=== PATIENT | male | born 1955 | race Caucasian/White ===

== ENCOUNTER 2016-11-29 16:25 | Emergency (ER) | payer SELFPAY ==
[2016-11-29 16:28] VITALS: BP 163/83; PULSE 18; PULSE 84; RESP 18; TEMP 98.3; O2SAT 95
--- NOTE | 2016-11-29 18:10 | PD ---
HPI Chief Complaint: Complaint Time Seen by Provider: 18:05 Travel History International Travel<30 days: No Contact w/Intl Traveler<30days: No Traveled to known affect area: No History of Present Illness HPI Patient is a 61-year-old male presenting to the emergency department for evaluation of left testicular pain. Patient states he feels as if there is an extra golfball in his left testicle. He states the pain started several weeks ago but increased today and feels like he's been kicked in the "nuts". Patient denies any dysuria, frequency, discharge, nausea, vomiting, fever, chills, abdominal pain or back pain. Patient reports pain as a 9 out of 10 and describes it as sore and aching. PFSH Past Medical History Hypertension: Yes Past Surgical History Appendectomy: Yes Eye Surgery: Yes Other Surgery: Yes (sinus surgery, wrist surgery) Social History Alcohol Use: Yes (occasionally) Tobacco Use: No Substance Use: No Allergies-Medications (Allergen,Severity, Reaction): Coded Allergies: No Known Allergies (Unverified , 11/29/16) Reported Meds & Prescriptions Reported Meds & Active Scripts Active Reported Synthroid (Levothyroxine Sodium) 75 Mcg Tab 75 Mcg PO DAILY Xanax (Alprazolam) 1 Mg Tab 1 Mg PO HS PRN Lisinopril 20 Mg Tab 20 Mg PO DAILY Review of Systems Except as stated in HPI: all other systems reviewed are Neg Genitourinary: Positive: Other (testicle pain) Physical Exam Narrative GENERAL: Well-developed, well-nourished, alert male. Appears uncomfortable, in no acute distress. SKIN: Warm and dry. HEAD: Atraumatic. Normocephalic. EYES: Pupils equal and round. No scleral icterus. No injection or drainage. ENT: No nasal bleeding or discharge. Mucous membranes pink and moist. NECK: Trachea midline. No JVD. CARDIOVASCULAR: Regular rate and rhythm. No murmur appreciated. RESPIRATORY: No accessory muscle use. Clear to auscultation. Breath sounds equal bilaterally. GASTROINTESTINAL: Abdomen soft, non-tender, nondistended. Hepatic and splenic margins not palpable. MUSCULOSKELETAL: No obvious deformities. No clubbing. No cyanosis. No edema. NEUROLOGICAL: Awake and alert. No obvious cranial nerve deficits. Motor grossly within normal limits. Normal speech. PSYCHIATRIC: Appropriate mood and affect; insight and judgment normal. GENITOURINARY: Circumcised. Testes descended bilaterally without evidence of rotation. No lesions or erythema. No urethral discharge. Left testicle is enlarged, tender to palpation. Data Data Last Documented VS Vital Signs Date Time Temp Pulse Resp B/P Pulse Ox O2 Delivery O2 Flow Rate FiO2 11/29/16 19:58 18 11/29/16 19:01 68 131/77 97 Room Air 11/29/16 16:28 98.3 Orders Complete Blood Count With Diff (11/29/16 18:03) Comprehensive Metabolic Panel (11/29/16 18:03) Ua Includes Microscopic (11/29/16 18:03) Gc And Chlamydia Pcr (11/29/16 18:03) Us Testicles W Doppler (11/29/16 18:03) Morphine Inj (Morphine Inj) (11/29/16 19:45) Labs Laboratory Tests Test 11/29/16 19:05 White Blood Count 6.5 TH/MM3 Red Blood Count 4.31 MIL/MM3 Hemoglobin 13.8 GM/DL Hematocrit 41.4 % Mean Corpuscular Volume 96.0 FL Mean Corpuscular Hemoglobin 32.1 PG Mean Corpuscular Hemoglobin 33.4 % Concent Red Cell Distribution Width 14.2 % Platelet Count 208 TH/MM3 Mean Platelet Volume 9.5 FL Neutrophils (%) (Auto) 67.3 % Lymphocytes (%) (Auto) 15.7 % Monocytes (%) (Auto) 13.6 % Eosinophils (%) (Auto) 2.3 % Basophils (%) (Auto) 1.1 % Neutrophils # (Auto) 4.4 TH/MM3 Lymphocytes # (Auto) 1.0 TH/MM3 Monocytes # (Auto) 0.9 TH/MM3 Eosinophils # (Auto) 0.1 TH/MM3 Basophils # (Auto) 0.1 TH/MM3 CBC Comment DIFF FINAL Differential Comment Sodium Level 141 MEQ/L Potassium Level 3.9 MEQ/L Chloride Level 107 MEQ/L Carbon Dioxide Level 28.6 MEQ/L Anion Gap 5 MEQ/L Blood Urea Nitrogen 16 MG/DL Creatinine 1.13 MG/DL Estimat Glomerular Filtration 66 ML/MIN Rate Random Glucose 84 MG/DL Calcium Level 8.5 MG/DL Total Bilirubin 0.3 MG/DL Aspartate Amino Transf 20 U/L (AST/SGOT) Alanine Aminotransferase 42 U/L (ALT/SGPT) Alkaline Phosphatase 51 U/L Total Protein 7.4 GM/DL Albumin 3.8 GM/DL MDM Medical Decision Making Medical Screen Exam Complete: Yes Emergency Medical Condition: Yes Interpretation(s) Vital Signs Date Time Temp Pulse Resp B/P Pulse Ox O2 Delivery O2 Flow Rate FiO2 11/29/16 16:28 98.3 84 18 163/83 95 Differential Diagnosis Epididymitis versus Varicocele versus torsion versus hernia versus other Narrative Course Patient is a 61-year-old male presenting to emergency for evaluation of left testicle pain and swelling. Symptoms have been ongoing for several weeks however increased today. Workup initiated triage, care of patient will be transferred to provider when a medical bed is available. Park Viera Nov 29, 2016 18:10
[2016-11-29 19:01] VITALS: BP 131/77; PULSE 68; RESP 18; O2SAT 97
--- NOTE | 2016-11-29 19:03 | RADRPT ---
EXAM DATE/TIME: 11/29/2016 18:12 1[facility] COMPARISON: No previous studies available for comparison. INDICATIONS : Left testicle pain. MEDICAL HISTORY : Hypertension. Testicular pain. SURGICAL HISTORY : Appendectomy. Sinus surgery. Wrist surgery. ENCOUNTER: Initial ACUITY: 1 day PAIN SCORE: 8/10 LOCATION: Bilateral scrotum. MEASUREMENTS: RIGHT TESTICLE: 4.8 x 3.1 x 2.7cm LEFT TESTICLE: 4.2 x 3.3 x 2.7cm FINDINGS: RIGHT TESTICLE: Homogeneous echotexture without intra or extratesticular mass. Blood flow is symmetric and within no rmal limits. No hydrocele or varicocele. Epididymis is within normal limits. LEFT TESTICLE: Homogeneous echotexture without intra or extratesticular mass. Blood flow is symmetric and within no rmal limits. No varicocele. There is a moderate hydrocele. Epididymis is within normal limits. SCROTUM: Within normal limits. CONCLUSION: 1. The testicles are intrinsically normal. 2. Moderate sized left hydrocele. Newton Cruz MD on November 29, 2016 at 19:00 Board Certified Radiologist. This report was verified electronically.
[2016-11-29] MEDS ORDERED: XANA1TAB2 PO (19:05)
[2016-11-29] MEDS ORDERED: LEVO.075 PO (19:05)
[2016-11-29] MEDS ORDERED: LISI-515 PO (19:05)
[2016-11-29 19:20] LABS: AUTOMATED NEUTROPHIL # 4.4 TH/MM3 (1.8-7.7); BASOPHIL # 0.1 TH/MM3 (0-0.2); BASOPHIL % 1.1 % (0.0-2.0); EOSINOPHIL # 0.1 TH/MM3 (0-0.4); EOSINOPHIL % 2.3 % (0.0-4.0); HEMATOCRIT 41.4 % (39.0-51.0); HEMO FLAGS DIFF FINAL; LYMPH % 15.7 % (9.0-44.0); MEAN CORPUSCULAR HEMOGLOBIN 32.1 PG (27.0-34.0); MEAN CORPUSCULAR HGB CONC 33.4 % (32.0-36.0); MONO % 13.6 % (0.0-8.0); NEUT % 67.3 % (16.0-70.0); PLATELET COUNT 208 TH/MM3 (150-450); RED BLOOD COUNT 4.31 MIL/MM3 (4.50-5.90); RED CELL DISTRIBUTION WIDTH 14.2 % (11.6-17.2); WHITE BLOOD COUNT 6.5 TH/MM3 (4.0-11.0)
[2016-11-29 19:45] LABS: ANION GAP 5 MEQ/L (5-15); AST (GOT) 20 U/L (15-37); BICARBONATE 28.6 MEQ/L (21.0-32.0); BLOOD UREA NITROGEN 16 MG/DL (7-18); CHLORIDE 107 MEQ/L (98-107); GLOMERULAR FILTRATION RATE 66 ML/MIN (>89); POTASSIUM 3.9 MEQ/L (3.5-5.1); SODIUM (NA) 141 MEQ/L (136-145)
[2016-11-29] MEDS ORDERED: MORPHINE SULFATE 4 MG/ML INJ IV PUSH ONE (19:45)
[2016-11-29 19:48] LABS: ALKALINE PHOSPHATASE 51 U/L (45-117); ALT (GPT) 42 U/L (12-78); TOTAL BILIRUBIN ADULT 0.3 MG/DL (0.2-1.0)
--- NOTE | 2016-11-29 20:11 | PD ---
Physical Exam Date Seen by Provider: Nov 29, 2016 Data Data Last Documented VS Vital Signs Date Time Temp Pulse Resp B/P Pulse Ox O2 Delivery O2 Flow Rate FiO2 11/29/16 20:18 71 16 128/88 98 Room Air 11/29/16 16:28 98.3 Orders Complete Blood Count With Diff (11/29/16 18:03) Comprehensive Metabolic Panel (11/29/16 18:03) Ua Includes Microscopic (11/29/16 18:03) Gc And Chlamydia Pcr (11/29/16 18:03) Us Testicles W Doppler (11/29/16 18:03) Morphine Inj (Morphine Inj) (11/29/16 19:45) Labs Laboratory Tests Test 11/29/16 11/29/16 19:05 20:58 White Blood Count 6.5 TH/MM3 Red Blood Count 4.31 MIL/MM3 Hemoglobin 13.8 GM/DL Hematocrit 41.4 % Mean Corpuscular Volume 96.0 FL Mean Corpuscular Hemoglobin 32.1 PG Mean Corpuscular Hemoglobin 33.4 % Concent Red Cell Distribution Width 14.2 % Platelet Count 208 TH/MM3 Mean Platelet Volume 9.5 FL Neutrophils (%) (Auto) 67.3 % Lymphocytes (%) (Auto) 15.7 % Monocytes (%) (Auto) 13.6 % Eosinophils (%) (Auto) 2.3 % Basophils (%) (Auto) 1.1 % Neutrophils # (Auto) 4.4 TH/MM3 Lymphocytes # (Auto) 1.0 TH/MM3 Monocytes # (Auto) 0.9 TH/MM3 Eosinophils # (Auto) 0.1 TH/MM3 Basophils # (Auto) 0.1 TH/MM3 CBC Comment DIFF FINAL Differential Comment Sodium Level 141 MEQ/L Potassium Level 3.9 MEQ/L Chloride Level 107 MEQ/L Carbon Dioxide Level 28.6 MEQ/L Anion Gap 5 MEQ/L Blood Urea Nitrogen 16 MG/DL Creatinine 1.13 MG/DL Estimat Glomerular Filtration 66 ML/MIN Rate Random Glucose 84 MG/DL Calcium Level 8.5 MG/DL Total Bilirubin 0.3 MG/DL Aspartate Amino Transf 20 U/L (AST/SGOT) Alanine Aminotransferase 42 U/L (ALT/SGPT) Alkaline Phosphatase 51 U/L Total Protein 7.4 GM/DL Albumin 3.8 GM/DL Urine Color LIGHT-YELLOW Urine Turbidity CLEAR Urine pH 7.5 Urine Specific [place] 1.012 Urine Protein NEG mg/dL Urine Glucose (UA) NEG mg/dL Urine Ketones NEG mg/dL Urine Occult Blood NEG Urine Nitrite NEG Urine Bilirubin NEG Urine Urobilinogen LESS THAN 2.0 MG/DL Urine Leukocyte Esterase NEG Urine RBC 1 /hpf Urine WBC LESS THAN 1 /hpf Microscopic Urinalysis Comment CULT NOT INDICATED MDM Medical Record Reviewed: Yes Supervised Visit with CASSIUS: Yes Interpretation(s) Vital Signs Date Time Temp Pulse Resp B/P Pulse Ox O2 Delivery O2 Flow Rate FiO2 11/29/16 19:58 18 11/29/16 19:01 68 18 131/77 97 Room Air 11/29/16 16:28 98.3 84 18 163/83 95 Laboratory Tests Test 11/29/16 19:05 White Blood Count 6.5 TH/MM3 (4.0-11.0) Red Blood Count 4.31 MIL/MM3 (4.50-5.90) Hemoglobin 13.8 GM/DL (13.0-17.0) Hematocrit 41.4 % (39.0-51.0) Mean Corpuscular Volume 96.0 FL (80.0-100.0) Mean Corpuscular Hemoglobin 32.1 PG (27.0-34.0) Mean Corpuscular Hemoglobin 33.4 % Concent (32.0-36.0) Red Cell Distribution Width 14.2 % (11.6-17.2) Platelet Count 208 TH/MM3 (150-450) Mean Platelet Volume 9.5 FL (7.0-11.0) Neutrophils (%) (Auto) 67.3 % (16.0-70.0) Lymphocytes (%) (Auto) 15.7 % (9.0-44.0) Monocytes (%) (Auto) 13.6 % (0.0-8.0) Eosinophils (%) (Auto) 2.3 % (0.0-4.0) Basophils (%) (Auto) 1.1 % (0.0-2.0) Neutrophils # (Auto) 4.4 TH/MM3 (1.8-7.7) Lymphocytes # (Auto) 1.0 TH/MM3 (1.0-4.8) Monocytes # (Auto) 0.9 TH/MM3 (0-0.9) Eosinophils # (Auto) 0.1 TH/MM3 (0-0.4) Basophils # (Auto) 0.1 TH/MM3 (0-0.2) CBC Comment DIFF FINAL Differential Comment Sodium Level 141 MEQ/L (136-145) Potassium Level 3.9 MEQ/L (3.5-5.1) Chloride Level 107 MEQ/L (98-107) Carbon Dioxide Level 28.6 MEQ/L (21.0-32.0) Anion Gap 5 MEQ/L (5-15) Blood Urea Nitrogen 16 MG/DL (7-18) Creatinine 1.13 MG/DL (0.60-1.30) Estimat Glomerular Filtration 66 ML/MIN (>89) Rate Random Glucose 84 MG/DL (74-106) Calcium Level 8.5 MG/DL (8.5-10.1) Total Bilirubin 0.3 MG/DL (0.2-1.0) Aspartate Amino Transf 20 U/L (15-37) (AST/SGOT) Alanine Aminotransferase 42 U/L (12-78) (ALT/SGPT) Alkaline Phosphatase 51 U/L (45-117) Total Protein 7.4 GM/DL (6.4-8.2) Albumin 3.8 GM/DL (3.4-5.0) Last Impressions Scrotum Ultrasound 11/29/16 1803 Signed Impressions: Service Date/Time: Tuesday, November 29, 2016 18:12 - CONCLUSION: 1. The testicles are intrinsically normal. 2. Moderate sized left hydrocele. Newton Cruz MD Differential Diagnosis Testicular mass, testicular torsion, varicocele, hydrocele, hernia Narrative Course I, Dr. Leos, have reviewed the advance practice practitioner's documentation and am in agreement, met with the patient face to face, made the diagnosis, and the medical decision making was done by me. *My assessment and Findings: Patient with left-sided hydrocele. Patient is a 61-year-old male who presents to emergency room with complaints of testicular pain. Patient reports that he has had increased left-sided testicular pain for the past week. Patient reports that he noticed increased swelling to his left testicle one week ago, reports that he does not think that the size of his testicle changed over the past week. Patient reports that he has had increased pains to her left sinus testicle today which is increased from over the past week. Patient denies dysuria, urinary urgency or frequency or penile discharge. GENERAL: Mild distress SKIN: Warm and dry. HEAD: Atraumatic. Normocephalic. EYES: Pupils equal and round. No scleral icterus. No injection or drainage. ENT: No nasal bleeding or discharge. Mucous membranes pink and moist. NECK: Trachea midline. No JVD. CARDIOVASCULAR: Regular rate and rhythm. No murmur appreciated. RESPIRATORY: No accessory muscle use. Clear to auscultation. Breath sounds equal bilaterally. GASTROINTESTINAL: Abdomen soft, non-tender, nondistended. Hepatic and splenic margins not palpable. : Patient with increased swelling to the left testicle, patient with eye bilateral testicles in vertical lie, normal cremasteric reflex, patient with swelling to left testicle, exam performed with RN at bedside MUSCULOSKELETAL: No obvious deformities. No clubbing. No cyanosis. No edema. NEUROLOGICAL: Awake and alert. Vital Signs Date Time Temp Pulse Resp B/P Pulse Ox O2 Delivery O2 Flow Rate FiO2 11/29/16 19:58 18 11/29/16 19:01 68 18 131/77 97 Room Air 11/29/16 16:28 98.3 84 18 163/83 95 CBC & BMP Diagram 11/29/16 19:05 Last Impressions Scrotum Ultrasound 11/29/16 1803 Signed Impressions: Service Date/Time: Tuesday, November 29, 2016 18:12 - CONCLUSION: 1. The testicles are intrinsically normal. 2. Moderate sized left hydrocele. Newton Cruz MD UA pending. Patient's ultrasound with left-sided moderate size hydrocele. Blood flow is symmetric and within normal limits to bilateral testicles. A copy of patient's ultrasound report was given to him as patient wanted to follow up with urologist as outpatient. Signs and symptoms of when to return to the emergency room was reviewed patient in detail. Patient will follow up with all cultures from today. Diagnosis Primary Impression: Hydrocele in adult Additional Impressions: Testicle pain Testicle tenderness Testicle swelling Referrals: Nolan Carlson DO Patient Instructions: General Instructions Additional Instruction: Please provide patient with a copy of his lab work and studies at discharge Please return to emergency room if symptoms progress or worsen Please call the urologist first thing in the morning for earliest follow-up Please call your primary care doctor first thing in the morning for earliest follow-up Please bring your ultrasound report to your doctor's office for follow-up Med/Other Pt SpecificInfo: Prescription(s) given Scripts Ibuprofen 600 Mg Fue235 Mg PO Q6H PRN (Pain/Inflammation) #40 TAB Ref 0 Prov:Ree Leos DO 11/29/16 Disposition: 01 DISCHARGE HOME Condition: Stable Ree Leos DO Nov 29, 2016 20:11
[2016-11-29 20:18] VITALS: BP 128/88; PULSE 71; RESP 16; O2SAT 98
[2016-11-29] MEDS ORDERED: IBUP-232 PO (21:16)
[2016-11-29 21:21] LABS: BLOOD, URINE NEG (NEG); GLUCOSE,URINE NEG (NEG); KETONE, URINE NEG (NEG); NITRITE,URINE NEG (NEG); PH, URINE 7.5 (5.0-8.5); URINE COLOR LIGHT-YELLOW (YELLW/STRAW)
[2016-11-29 21:25] LABS: COMMENT (UR) CULT NOT INDICATED
[2016-11-30 00:19] LABS: CHLAMYDIA PCR NOT DETECTED (NOT DETECT); NEISSERIA PCR NOT DETECTED (NOT DETECT)
== END 2016-11-29 22:23 | disposition home or self-care (01) ==
LOC: NETRI 16:25 → NEPE 22:23
DX: N43.3 Hydrocele, unspecified (principal); N50.812 Left testicular pain; N50.89 Other specified disorders of the male genital organs; I10 Essential (primary) hypertension
CPT/HCPCS: 76870; 80053; 81001; 85025; 87491; 87591; 93975; 96374; 99284; J2270